=== PATIENT | male | born 1985 | race Caucasian/White ===

== ENCOUNTER 2020-12-01 17:24 | Emergency (ER) | payer OTHER, SELFPAY ==
[2020-12-01 17:30] VITALS: BP 135/84; PULSE 104; RESP 16; TEMP 36.9; O2SAT 96; BMI 52.2
[2020-12-01] MEDS: Nicotine 21 MG PATCH.TD24 TRANSDERMA (18:13)
--- NOTE | 2020-12-01 18:43 | ED_ITS ---
HPI - Psych General Chief Complaint: Psychiatric Symptoms Stated Complaint: crisis Time Seen by Provider: 12/01/20 17:58 Source: patient Mode of arrival: ambulatory Limitations: no limitations History of Present Illness HPI Narrative: 35-year-old male with a past medical history of ADHD, anxiety, asthma, bipolar disease, chronic back pain here with complaints of frequent anger outburst. Unable to control his emotion. Patient tells me frequently he has pulled over to the side of the road by a bridge and thought about driving his car into the water below. He does admit to suicidal thoughts. No homicidal thoughts. No hallucinations. No physical complaints. Denies substance use. He tells me he is seen by psychiatrist, psychologist in a therapist and is taking multiple medications but does not feel like they are working Related Data Home Medications Medication Instructions Recorded Confirmed buspirone 15 mg tablet 15 mg PO BID 11/14/20 dextroamphetamine-amphetamine ER 1 cap PO QAM 11/14/20 25 mg 24hr capsule,extend release olanzapine 10 mg tablet 10 mg PO BID 11/14/20 Previous Rx's Medication Instructions Recorded cholecalciferol (vitamin D3) 50 50 mcg PO DAILY #90 tab 07/11/20 mcg (2,000 unit) tablet gabapentin 100 mg capsule 100 mg PO TID 30 Days #90 cap 10/19/20 albuterol sulfate 90 mcg/actuation 2 puff INHALATION Q6H PRN 30 Days 11/11/20 aerosol inhaler #8.5 g cyclobenzaprine 10 mg tablet 10 mg PO TID PRN #30 tab 11/14/20 meloxicam 15 mg tablet 15 mg PO DAILY #30 tab 11/14/20 Allergies Allergy/AdvReac Type Severity Reaction Status Date / Time SEAFOOD Allergy Severe HIVES Uncoded 03/13/20 16:35 shellfish Allergy Unknown anaphylaxis Uncoded 09/20/18 00:00 Review of Systems 2 Review of Systems: Yes all other systems are reviewed and are negative Constitutional: Constitutional: Reports no additional constitutional complaints, Denies body ache(s), Denies chills, Denies fever(s), Denies headache(s) and Denies weakness Eyes: Eyes: Reports no additional eye complaints and Denies change in vision ENT: Reports system reviewed and no additional complaints, except as doc umented, Denies dizziness, Denies headache(s), Denies nasal congestion, Denies nasal discharge and Denies neck pain Cardiovascular: Cardiovascular: Reports no additional cardiovascular complaints, Denies chest pain, Denies leg edema and Denies dyspnea Respiratory: Respiratory: Reports no additional respiratory complaints, Denies cough and Denies dyspnea Gastrointestinal: Gastrointestinal: Reports no additional gastrointestinal complaints, Denies abdominal pain, Denies diarrhea, Denies nausea and Denies vomiting Genitourinary: Genitourinary: Denies urinary incontinence Musculoskeletal: Musculoskeletal: Reports no additional musculoskeletal complaints, Denies back pain, Denies arthralgias, Denies joint swelling, Denies neck pain, Denies numbness and Denies tingling Integumentary/Breasts: Skin/Breast: Reports system reviewed and no additional complaints, except as docu and Denies rash Neurologic: Reports system reviewed and no additional complaints, except as documented, Denies Abnormal speech present, Denies dizziness, Denies headache(s), Denies numbness, Denies tingling and Denies weakness Psychiatric: Psychiatric: Reports irritability, Reports mood swings, Denies visual hallucinations, Denies hallucinations, Denies homicidal ideation and Reports suicidal ideation [facility] Past Medical History Attestation statement: The following information was validated with the patient. Source: old records reviewed and nursing notes reviewed Medical History ADHD (attention deficit hyperactivity disorder) Anxiety Asthma Bipolar disorder Lumbar disc herniation Nerve root compression Sleep apnea Stuttering Family History Family History Father No problems noted. Mother No problems noted. Sister No problems noted. Sister No problems noted. Daughter No problems noted. Social History Social History Alcohol intake: former Patient Tobacco Use Status: Current everyday Tobacco user Smoked in Last 30 Days: Yes Use of substances other than those prescribed or required for medical reasons: Yes Substance Use Type: Marijuana Substance Use Frequency: Occasionally Advance Directives: No Advance Directives Information Provided: No Physical Exam Vital Signs: Vital Signs: Last Vital Signs Temp 98.5 F 12/01/20 17:30 Pulse 104 H 12/01/20 17:30 Resp 16 12/01/20 17:30 BP 135/84 12/01/20 17:30 Pulse Ox 96 12/01/20 17:30 Body Mass Index 52.2 Const: General: cooperative, healthy appearing, comfortable and no acute distress Orientation/consciousness: patient oriented x3 Limitations: no limitations HENMT: Head: Yes normal to inspection Ears: hearing grossly normal bilaterally General nose exam: Normal external nose present Face and sinus: Yes normal facial exam Mouth: Normal oral and palatal mucosa present Throat: Yes posterior oropharynx normal Eyes: General: appearance normal, both eyes and all related structures Pupils: Equal, round and reactive pupils present Neck: Neck: Yes normal visual inspection Chest: Chest palpation & inspection: normal inspection of the chest Resp: Effort & Inspection: normal respiratory effort Auscultation: clear to auscultation bilaterally Cardio: Rate: regular rate Rhythm: regular rhythm Peripheral pulses: Peripheral pulses 2+ throughout GI: Inspection: Yes normal to inspection Palpation (GI): Soft to palpation and nontender Auscultation: normal bowel sounds Back/Spine/Pelvis: Thoracic/Lumbar Spine: thoracic and lumbar spine normal to inspection Skin: General skin exam: no rashes or lesions noted Neuro: General: patient oriented x3, no focal motor deficits and normal sensation to monofilament Cranial nerves: Yes Equal, round and reactive pupils present Cognition (Neuro): normal cognition Speech: No Abnormal speech present Gait exam (Neuro): Normal gait present Motor exam (neuro): 5/5 motor strength present throughout Extrem: General: Yes normal to inspection, Yes no pedal edema and Yes no calf tenderness Course Course Course Narrative: 35-year-old male here with complaints of mood swings, outbursts, suicidal thoughts. He tells me he has been med compliant and seen by his providers with continued symptoms. No physical complaints. No concern for acute ingestion or trauma. Will check labs, drug screen and have N evaluate the patient. 2044-patient cleared for crisis evaluation. Placement physician observation pending evaluation and disposition 2099-Sign out to night team pending above. MDM - Psych Medical Records Attestation: I reviewed the patient's medical records. Lab Data Attestation: I reviewed the patient's lab results. Result diagrams: 12/01/20 18:48 12/01/20 18:48 Labs: Lab Results 12/01/20 12/01/20 12/01/20 Range/Units 18:48 18:48 18:48 Sodium 141 (135-145) mmol/L Potassium 3.7 (3.3-5.1) mmol/L Chloride 105 (96-108) mmol/L Carbon Dioxide 27 (22-29) mmol/L Anion Gap 13 (12-20) BUN 17 H (9-16) mg/dL Creatinine 1.19 (0.5-1.4) mg/dL Estim Creat Clear Calc 137.4 Estimated GFR > 60 Random Glucose 179 H (60-115) mg/dL Calcium 9.5 (8.4-10.2) mg/dL Total Bilirubin 0.5 (0.0-1.0) mg/dL Direct Bilirubin 0.2 (0.0-0.5) mg/dL AST 15 (5-37) U/L ALT 9 (0-40) U/L Alkaline Phosphatase 90 (39-117) U/L Total Protein 7.1 (6.5-8.0) g/dL Albumin 4.0 (3.5-5.0) g/dL Salicylates < 5.0 L (15-30) mg/dL Urine Opiates Screen Not Detected (Not Detect) Acetaminophen < 1 (<30) mcg/mL Ur Barbiturates Screen Not Detected (Not Detect) Ur Phencyclidine Scrn Not Detected (Not Detect) Ur Amphetamines Screen POSITIVE H (Not Detect) U Benzodiazepines Scrn Not Detected (Not Detect) Urine Cocaine Screen POSITIVE H (Not Detect) U Marijuana (THC) Screen POSITIVE H (Not Detect) Ethyl Alcohol < 10 mg/dL Discharge Plan Discharge Clinical Impression: Depression Prescriptions: No Action cholecalciferol (vitamin D3) 50 mcg (2,000 unit) tablet 50 mcg PO DAILY Qty: 90 RF: 1 gabapentin 100 mg capsule 100 mg PO TID 30 Days Qty: 90 RF: 4 albuterol sulfate [ProAir HFA] 90 mcg/actuation HFA aerosol inhaler 2 puff inhalation Q6H PRN (Reason: bronchospasm) 30 Days Qty: 8.5 RF: 2 dextroamphetamine-amphetamine 25 mg capsule,extended release 24hr 1 cap PO QAM RF: 0 olanzapine 10 mg tablet 10 mg PO BID RF: 0 buspirone 15 mg tablet 15 mg PO BID RF: 0 meloxicam [Mobic] 15 mg tablet 15 mg PO DAILY Qty: 30 RF: 0 cyclobenzaprine 10 mg tablet 10 mg PO TID PRN (Reason: muscle spasm) Qty: 30 RF: 0
[2020-12-01 19:16] LABS: Ethanol < 10 mg/dL
[2020-12-01 19:20] LABS: Acetaminophen LAB < 1 mcg/mL (<30); Alanine Aminotransferase 9 U/L (0-40); Alkaline Phosphatase 90 U/L (39-117); Anion Gap 13 (12-20); Aspartate Amino Transferase 15 U/L (5-37); Bilirubin Direct 0.2 mg/dL (0.0-0.5); Bilirubin Total 0.5 mg/dL (0.0-1.0); Blood Urea Nitrogen 17 mg/dL (9-16); Calcium 9.5 mg/dL (8.4-10.2); Carbon Dioxide 27 mmol/L (22-29); Chloride 105 mmol/L (96-108); Creatinine Clr Calc Pharmacy 137.4; Estimated Glomerular Filt Rate > 60; Glucose Random 179 mg/dL (60-115); Potassium 3.7 mmol/L (3.3-5.1); Salicylate < 5.0 mg/dL (15-30); Sodium 141 mmol/L (135-145); Total Protein 7.1 g/dL (6.5-8.0)
[2020-12-01 19:29] LABS: Amphetamine Screen Urine POSITIVE (Not Detect); Barbiturates, Urine Not Detected (Not Detect); Benzodiazepines Screen Urine Not Detected (Not Detect); Cannabinoid Screen Urine POSITIVE (Not Detect); Cocaine Screen Urine POSITIVE (Not Detect); Opiate Screen Urine Not Detected (Not Detect); Phencyclidine Screen Urine Not Detected (Not Detect)
[2020-12-01 22:31] VITALS: RESP 18
[2020-12-01 23:51] VITALS: BP 147/84; PULSE 79; RESP 16; TEMP 36.6; O2SAT 96
[2020-12-02 07:29] VITALS: RESP 16
--- NOTE | 2020-12-02 07:39 | PC.NURSE ---
pt's sister sam called [facility] [place], pt spoke with her.
--- NOTE | 2020-12-02 07:48 | PC.NURSE ---
PT ate 75% of breakfast
--- NOTE | 2020-12-02 07:50 | PC.NURSE ---
PT PACING IN HALLWAYS/ROOM STATE THAT HE IS ANXIOUS AND HE DID NOT RECEIVE HIS MEDS LAST NIGHT NOR THIS AM YET. PT STATES THAT HE HAS HIS MEDS IN HIS CAR. PT IS ALSO REQUESTING ANOTHER NICOTINE PATCH. AWARE.
[2020-12-02] MEDS: LORazepam 1 MG TABLET 2 MG PO (08:20)
[2020-12-02] MEDS: Nicotine 21 MG PATCH.TD24 TRANSDERMA (08:20)
[2020-12-02 08:38] VITALS: BP 142/83; PULSE 71; RESP 15; TEMP 36.1; O2SAT 95
[2020-12-02 10:52] VITALS: BP 134/84; PULSE 69; RESP 17; TEMP 36.3; O2SAT 95
[2020-12-02] MEDS: busPIRone HCl 5 MG TABLET 15 MG PO (11:00)
[2020-12-02] MEDS: FLUoxetine HCl 20 MG CAPSULE PO (11:00)
[2020-12-02] MEDS: Gabapentin 100 MG CAPSULE PO ×2 (11:00→14:48)
[2020-12-02] MEDS: NaPROXEN 500 MG TABLET PO (11:00)
[2020-12-02] MEDS: Albuterol Sulfate 90 MCG 8 GM INHALER 2 PUFF INHALE (11:02)
[2020-12-02] MEDS: Cholecalciferol (Vitamin D3) 25 MCG TABLET 50 MCG PO (11:03)
--- NOTE | 2020-12-02 11:03 | PC.NURSE ---
pt a/o x 3 no sob/apryl noted skin pink warm dry speaks in full sentences. pt is in common area watching tv. pt denies any si at this time, states that it come and goes. pt' lungs - cta. pt rquested/given ventolin puffe, 1 puff administered. pt aware of plan of care. bhn to eval. pt states ativan 2mg po was effective. decreased anxiety noted.
[2020-12-02 12:51] VITALS: RESP 16
--- NOTE | 2020-12-02 14:06 | PC.NURSE ---
pt seen by alfie), pt aware of plan of care.
[2020-12-02 14:38] VITALS: BP 134/81; PULSE 56; TEMP 36.3; O2SAT 98
--- NOTE | 2020-12-02 15:55 | PC.NURSE ---
pt is calm and cooperative, making needs known,
[2020-12-02 16:11] LABS: MANUAL DIFF FLAG NO
[2020-12-02 16:13] LABS: COVID-19 Test Negative (Negative); IDNOW Serial# 9DD0AD1C
[2020-12-02 16:14] LABS: Basophils Percent Auto 0.3 % (0-2); Eosinophils Absolute Auto 0.2 X10*3/uL (0.0-0.4); Eosinophils Percent Auto 1.5 % (0-4); Hematocrit 44.5 % (42-52); Hemoglobin 14.6 g/dl (14.0-18.0); Imm Gran Abs Auto 0.02 X10*3/uL (0.00-0.03); Imm Gran Pct Auto 0.2 % (0.0-0.4); Lymphocytes Percent Auto 17.7 % (20-40); Mean Corpuscular HGB Conc 32.8 g/dl (31.0-36.0); Mean Corpuscular Hemoglobin 29.6 pg (27.0-33.0); Mean Corpuscular Volume 90.3 fL (80-98); Mean Platelet Volume 10.1 fL (9.4-12.4); Monocytes Absolute Auto 0.8 X10*3/uL (0.1-1.2); Monocytes Percent Auto 7.2 % (2-11); Neutrophils Absolute Auto 8.1 X10*3/uL (2.0-8.3); Neutrophils Percent Auto 73.1 % (45-73); Platelet Count 225 X10*3/uL (160-400); Red Blood Count 4.93 X10*6/uL (4.60-5.80); White Blood Count 11.1 X10*3/uL (4.8-10.8)
--- NOTE | 2020-12-02 18:31 | PC.NURSE ---
Linda from [facility] reports that pt is accepted to respite on [address] in [place], pt is voluntary denies si/hi, plan is for patient to self drive to facility. Pt consents to safety and reports readiness to do so. contact for pt is [phone]. pt given rx scripts and directions to facility.
== END 2020-12-02 18:40 ==
PROVIDERS: Nurse Practitioner Family; Emergency Provider Internal Medicine; PCP Nurse Practitioner Family
DX: F32.9 Major depressive disorder, single episode, unspecified (principal); F31.9 Bipolar disorder, unspecified; J45.909 Unspecified asthma, uncomplicated; Z79.899 Other long term (current) drug therapy; Z20.822 Contact with and (suspected) exposure to COVID-19
CPT/HCPCS: 36415; 80048; 80076; 80143; 80179; 80307; 82077; 85025; 87635; 99285

== ENCOUNTER 2021-06-11 14:08 | Emergency (ER) | payer OTHER, SELFPAY ==
--- NOTE | ~2021-06-11 | XR_ITS ---
EXAMINATION: XR HAND, RIGHT CLINICAL INFORMATION: Punched wall. COMPARISON: None TECHNIQUE: PA, lateral, and oblique views of the right hand. FINDINGS: Mild deformity distal fifth metacarpal likely old injury. No acute fracture, dislocation or subluxation seen. The soft tissues are normal. XR/XR hand RT min 3V IMPRESSION: Unremarkable right hand exam.
--- NOTE | 2021-06-11 14:19 | ED.UPPEXIN ---
HPI - Extremity Injury (Upper) General Chief Complaint: Extremity Injury, Upper Stated Complaint: ? KNUCKLE FX PER INPT FACILITY Time Seen by Provider: 06/11/21 14:17 Source: patient Mode of arrival: EMS Limitations: no limitations History of Present Illness HPI narrative: patient notes that he punched a candle 2 weeks ago and caused a cut on his 4th knuckle R hand that he didn't seek care for since then his finger has been hanging down and he was not able to raise it he noted increased pain after punching the wall yesterday and his cut opened back up. complaint: injury to: right and hand Onset (ago): day(s) (yesterday ) Other Extremity Injury: right: hand Other injuries: none Handedness: right Place: other ([facility]) Severity: mild Relieving factors: none Exacerbating factors: other (movement of hand particularly 4th finger) Context: direct blow (punched a wall yesterday - notes he did the same thing a couple of weeks ago and had a cut there but never sought care) Associated symptoms: denies other symptoms Treatments prior to arrival: bandage Related Data Previous Rx's Medication Instructions Recorded meloxicam 15 mg tablet (Mobic) 15 mg PO DAILY #30 tab 11/14/20 buspirone 15 mg tablet 15 mg PO BID #14 tab 12/02/20 dextroamphetamine-amphetamine ER 25 mg PO DAILY #7 cap 12/02/20 25 mg 24hr capsule,extend release fluoxetine 20 mg capsule 20 mg PO DAILY #7 cap 12/02/20 gabapentin 100 mg capsule 100 mg PO TID #21 cap 12/02/20 lorazepam 1 mg tablet (Ativan) 1 mg PO BID PRN #10 tab 12/02/20 cholecalciferol (vitamin D3) 50 50 mcg PO DAILY #30 tab 01/11/21 mcg (2,000 unit) tablet albuterol sulfate 90 mcg/actuation 2 puff INHALATION Q6H PRN 30 Days 05/10/21 aerosol inhaler (ProAir HFA) #8.5 g Allergies Allergy/AdvReac Type Severity Reaction Status Date / Time SEAFOOD Allergy Severe HIVES Uncoded 05/01/21 15:01 shellfish Allergy Unknown anaphylaxis Uncoded 05/01/21 15:01 Review of Systems Review of Systems: Constitutional : No Fever, No Chills ENT/Mouth : No Ear Pain, No Hoarseness, No sore throat Eyes: No Eye Pain, No Swelling, No Redness, No Foreign Body Cardiovascular : No Chest Pain, No SOB Respiratory : No Cough, No Dyspnea Gastrointestinal : No Nausea, No Vomiting, No Diarrhea, No abdominal Pain Genitourinary : No Dysuria, No Hematuria Musculoskeletal : positive joint pain, No Myalgias, pos Joint Swelling Skin : pos Skin lacerations, No rash Neuro : No Weakness, No Numbness, No Loss of Consciousness, No Dizziness, No Headache Psych : No Anxiety/Panic, pos Depression Heme/Lymph: no easy bruising, no Lymphadenopathy Endocrine : No Polyuria, No Polydipsia PMFSH Past Medical History Attestation statement: The following information was validated with the patient. Medical History ADHD (attention deficit hyperactivity disorder) Anxiety Asthma Bipolar disorder Lumbar disc herniation Nerve root compression Schizophrenia Sleep apnea Stuttering Suicidal ideation Family History Family History Father No problems noted. Mother No problems noted. Sister No problems noted. Sister No problems noted. Daughter No problems noted. Social History Social History Alcohol intake: former Patient Tobacco Use Status: Current everyday Tobacco user Substance Use Type: Marijuana Advance Directives: No Advance Directives Information Provided: No Physical Exam Vital Signs: Vital Signs: Last Vital Signs Pulse 81 06/11/21 14:31 Resp 20 06/11/21 14:31 BP 123/64 06/11/21 14:31 Pulse Ox 96 06/11/21 14:31 BMI result Body Mass Index 50.1 Appearance: Alert. Oriented X3. No acute distress. Eyes: Pupils equal, round and reactive to light. ENT: Pharynx normal. Neck: Normal inspection. Neck supple. CVS: Normal heart rate and rhythm. Pulses normal. Respiratory: No respiratory distress. Breath sounds normal. Abdomen: Soft and nontender. Skin: Skin warm and dry. Normal skin color. Normal skin turgor. Extremities: No lower extremity edema. R hand ttp along 4th MCP joint abrasion and small minute puncture wound over 4th MCP, bruising over 5th digit distally NV intact - does not have good ROM of 4th digit limited movement noted cannot extend the finger old wound noted over 4th knuckle with area that appears opened in the middle Neuro: Oriented X 3. No motor deficit. No sensory deficit. Course Course Course Narrative: patient very consistent states he had a laceration from candle jar pulled glass out of his knuckle area 2 weeks ago since then has not been able to raise his 4th finger, [facility] staff was aware but no issues were addressed until he punched a wall yesterday. His wound on the knuckle appears old and area appears dehisced itself this does not appear entirely new. Suspect old extensor tendon injury, wound dressed and cleaned, prophylactic cephalexin, volar and finger splint, referral to hand surgery MDM - Extremity Injury (Upper) MDM Narrative Medical decision making narrative: 35 yo male at [facility] for mental health issues punched a wall yesterday that appears to have re-opened a wound and he likely had an extensor tendon injury from a candle jar laceration that he reports was 2 weeks ago - dispo per results and findings. he states tetanus up to date, will need splint and orthopedics referral, prophylactic abx and wound care Procedures Orthopedic Splinting/Casting Injury #1: Side: right Upper Extremity Injury Location: hand and finger Upper Extremity Immobilizer: volar splint and aluminum form splint Discharge Plan Discharge Clinical Impression: Puncture wound, Injury of extensor tendon of right hand Patient Disposition: Home, Self-Care Instructions: Puncture Wound (ED), Tendon Laceration (ED) Additional Instructions: return to ED for any worsening symptoms or concerns clean sterile dressing splint remains on until cleared Giacomo is very adamant that he suffered a deep puncture wound 2 weeks ago from glass candle jar that resulted in loss of function of his 4th finger - this is likely an old extensor tendon laceration. His wound appears old and newly opened after punching the wall. He should remain in the splint until he sees orthopedics there is no new fracture noted on xray. Please keep him on cephalexin 500mg QID for 7 days. He was given a tetanus shot. Call Dr. Ramey for next available appointment Mild deformity distal fifth metacarpal likely old injury. No acute fracture, dislocation or subluxation seen. The soft tissues are normal. ? XR/XR hand RT min 3V IMPRESSION: Unremarkable right hand exam. Prescriptions: No Action cholecalciferol (vitamin D3) 50 mcg (2,000 unit) tablet 50 mcg PO DAILY Qty: 30 RF: 5 albuterol sulfate [ProAir HFA] 90 mcg/actuation HFA aerosol inhaler 2 puff inhalation Q6H PRN (Reason: bronchospasm) 30 Days Qty: 8.5 RF: 2 fluoxetine 20 mg capsule 20 mg PO DAILY Qty: 7 RF: 0 dextroamphetamine-amphetamine 25 mg capsule,extended release 24hr 25 mg PO DAILY Qty: 7 RF: 0 lorazepam [Ativan] 1 mg tablet 1 mg PO BID PRN (Reason: anxiety) Qty: 10 RF: 0 buspirone 15 mg tablet 15 mg PO BID Qty: 14 RF: 0 gabapentin 100 mg capsule 100 mg PO TID Qty: 21 RF: 0 meloxicam [Mobic] 15 mg tablet 15 mg PO DAILY Qty: 30 RF: 0 Referrals: Evelyn Ramey MD [Physician] - 5 days
[2021-06-11 14:31] VITALS: BP 123/64; PULSE 81; RESP 20; O2SAT 96; BMI 50.1
--- NOTE | 2021-06-11 14:49 | PC.NURSE ---
pt brought to ed via ems from a locked unit at [facility] in [place]. pt states he got upset and punched the wall with his right fist. pt reports he was upset because he woke up with the power to heal people but nobody was able to explain to him why he woke up like that. he also reports that he will continue to heal. pt's right fist red and swollen, small cut noted.
[2021-06-11] MEDS: cephALEXin 500 MG CAPSULE PO (15:20)
[2021-06-11] MEDS: Diphth,Pertus(ACell),Tet Adult 0.5 ML SYRINGE IM (15:20)
== END 2021-06-11 19:09 | disposition home or self-care (01) ==
PROVIDERS: Emergency Provider Emergency Medicine; PCP Nurse Practitioner Family
DX: S61.431A Puncture wound without foreign body of right hand, initial encounter (principal); S66.801A Unspecified injury of other specified muscles, fascia and tendons at wrist and hand level, right hand, initial encounter; W22.09XA Striking against other stationary object, initial encounter; Y93.9 Activity, unspecified; Y92.9 Unspecified place or not applicable; Y99.9 Unspecified external cause status
CPT/HCPCS: 29125; 29130; 73130; 90471; 90715; 99284

== ENCOUNTER 2023-04-01 09:48 | Outpatient (REF) | payer OTHER, SELFPAY | END 2023-04-01 09:49 | disposition home or self-care (01) | LOC: HO.HMGCLDS 09:48 | PROVIDERS: PCP Nurse Practitioner Family; Visit Provider Nurse Practitioner Family | DX: E66.01 Morbid (severe) obesity due to excess calories (principal); M51.26 Other intervertebral disc displacement, lumbar region; F31.9 Bipolar disorder, unspecified; Z79.899 Other long term (current) drug therapy | CPT/HCPCS: 36415; 80164 ==

== ENCOUNTER 2023-09-24 10:55 | Outpatient (AMB) | payer OTHER, SELFPAY ==
--- NOTE | 2023-09-24 12:42 | MHC.OFFWIV ---
Intake Vital Signs 09/24/23 13:12 Height 6 ft BP 138/92 H Blood Pressure Location Lt brachial Pulse 85 Pulse Source Pulse Oximeter Temp 97.8 F Temp Source Oral Pulse Oximetry (%) 96 Oxygen Delivery Method Room Air Intake Visit Reasons: EP: losing consciousness ([phone]) Intake Note: pt says over the last year he has lost consciousness 4 times every time he either coughs or yawns 3 times he fell and hit his head this last time was few days to a week ago he was sitting down at the time of the incident. pt says he had a hx of sz 2 years ago in half-way Patient Tobacco Use Status: Current everyday Tobacco user Allergies SEAFOOD Allergy (Severe, Uncoded 10/13/23 07:38) HIVES shellfish Allergy (Unknown, Uncoded 10/13/23 07:38) anaphylaxis HPI EP: losing consciousness ([phone]) HPI Details Patient is a 38-year-old male with morbid obesity, untreated obstructive sleep apnea, poor compliance with asthma medication, and heavy tobacco smoker as well as marijuana, and with bipolar disorder history, who comes to the walk-in clinic with his friend reporting that had a recent episode of severe cough which caused him to lose consciousness and fall over. 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 He reports having a transient history of seizures while he was being transitioned on new medication for bipolar years ago. He has since been taken off this medication, and does not take anti seizure meds and has not had a seizure since. He reports that he was not able to follow up with his most recent sleep medicine appointment, and is not ready to quit smoking, other tobacco or marijuana. He smokes half a pack of cigarettes a day as well as multiple cigars, and frequent marijuana use. He denies current altered mental status, weakness or dizziness, numbness or tingling, cough or respiratory distress, palpitations or chest pain or shortness of breath. He reports no incontinence of urine or feces after these episodes, and per friend he is transiently dazed but no known postictal periods. [facility] Medical History (Updated 10/13/23 @ 07:15 by David Velazquez [employer]POR[employer]INE[employer]) Suicidal ideation Schizophrenia Nerve root compression Sleep apnea Lumbar disc herniation Stuttering Anxiety Asthma ADHD (attention deficit hyperactivity disorder) Bipolar disorder Family History Father No problems noted. Mother No problems noted. Sister No problems noted. Sister No problems noted. Daughter No problems noted. Social History Housing: Assisted Living Facility Alcohol intake: former Patient Tobacco Use Status: Current everyday Tobacco user Tobacco use type: Cigar Cigarette Packs Per Day: 0.5 Cigarettes Per Day: 10 e-Cigarette/Vaping Use: Currently Using Second Hand Smoke Exposure: Yes Substance Use Type: Marijuana service: No Current occupational status: unemployed Cognitive needs: No Hearing needs: No Vision needs: No Review of Systems Const All systems reviewed & are unremarkable except as noted in HPI and below Neuro Denies confusion Psych Denies confusion Physical Exam Vital Signs: Last Vital Signs Temp 97.8 F 09/24/23 13:12 Pulse 85 09/24/23 13:12 BP 138/92 H 09/24/23 13:12 Pulse Ox 96 09/24/23 13:12 Oxygen Delivery Method Room Air 09/24/23 13:12 Const General: cooperative, comfortable, no acute distress, alert, awake, Physically active, poor hygiene and tired appearing; No in distress, anxious, confusion, diaphoretic, ill appearing or intoxicated appearing Nutritional Appearance: obese Orientation/consciousness: patient oriented x3 and No confusion Limitations: ambulation with cane HEENT Head: Yes normal to inspection, Yes normocephalic and Yes atraumatic Ears: hearing grossly normal bilaterally, external ears normal, TM's normal bilaterally and EAC's normal General nose exam: Normal external nose present, Normal nares present, No nasal polyps present, Normal nasal mucous membranes and turbinates present, Normal septum present and No nasal discharge present Face and sinus: Yes normal facial exam, Yes sinuses nontender and Yes face symmetric Mouth: Normal oral and palatal mucosa present, lip normal and tongue normal Throat: Yes posterior oropharynx normal, Yes abnormal tonsil (mildly erythematous bilaterally), No peritonsillar mass, No postnasal drainage, No uvular edema and No cobblestoning Eyes General: appearance normal, both eyes and all related structures Pupils: Equal, round and reactive pupils present Chest Chest palpation & inspection: normal palpation of entire chest wall Resp Effort & Inspection: normal respiratory effort, able to speak in complete sentences, no audible wheezes, no cough, no grunting, not labored, no nasal flaring, no retractions and symmetric chest movement Auscultation: clear to auscultation bilaterally, no crackles, no rales, no rhonchi, no wheezes, lung sounds not diminished and No rub present Cardio Rate: regular rate Skin Other: Good color, warm and dry Neuro Other: Romberg not tested due to patient's habitus, and difficulty with balance already. General: patient oriented x3 and No confusion Cranial nerves: Yes CN's II-XII intact bilaterally and Yes Equal, round and reactive pupils present Cognition (Neuro): normal cognition Gait exam (Neuro): Wide-based gait present Psych Appearance: grossly normal Mental Status: mental status grossly normal Speech and movement: Normal speech and movement present Affect: normal affect Attitude: cooperative Thought process: Normal thought process present Insight: Good insight present (Psych) Judgement: Good judgement present (Psych) Results Reviewed Results Reviewed: Plain film chest x-rays today unremarkable for acute cardiopulmonary issues. Assessment & Plan Assessment & Plan (1) Cough: Code(s): R05.9 - Cough, unspecified Qualifiers: Cough type: chronic Qualified Code(s): R05.3 - Chronic cough Plan: 38-year-old male with morbid obesity, untreated sleep apnea, poor compliance with asthma medication, and heavy tobacco smoker as well as marijuana, and with bipolar disorder history, who comes to the walk-in clinic with his friend reporting that had a recent episode of severe cough which caused him to lose consciousness and fall over, which is apparently the 4th episode within the past year. He is slightly confused after these episodes, although no drowsy and obvious postictal periods. He does have a brief history of having seizures with medication change to treat his bipolar disorder a few years ago. Since then, no apparent seizure activity. It sounds like he is having syncopal episodes related coughing. He self reports that he is a heavy marijuana and cigarette/cigar smoker, and this is likely aggravating his asthma, which is also not being treated appropriately. He also has the untreated obstructive sleep apnea, which might be contributing to fatigue in addition to the morbid obesity. His exam here in the walk-in is negative for a neuro deficit, and he is alert and oriented with no current symptoms, and no cough or respiratory distress. I did do a chest x-ray today which shows no acute cardiopulmonary issues. I think he needs follow-up with a foreign diplomat to have repeat PFTs and to have a more aggressive maintenance regimen for his asthma, including smoking counseling, as well as DIANA treatment. He is also morbidly obese and needs to work on weight reduction. We discussed that he should have a stat follow-up with his PCP to start working on these issues. He is in agreement with this, and an appointment was made for him in a few days with David Pena. He knows to go to the emergency department in the meantime if he has another episode, especially if he gets hurt. Patient's friend was with him and witnessed agreement with this plan. Orders: Orders XR chest 2V 09/24/23 R05.9 - Cough, unspecified Coding Level of Care Code Est Pt Level 4 (13924) Diagnoses Chronic cough R05.3 Cough type: chronic
[2023-09-24 13:12] VITALS: BP 138/92; PULSE 85; TEMP 36.6; O2SAT 96
== END 2023-09-24 13:51 | disposition home or self-care (01) ==
PROVIDERS: PCP Nurse Practitioner Family; Visit Provider Physician Assistant Medical
DX: R05.3 Chronic cough (principal)
CPT/HCPCS: 99051; 99214

== ENCOUNTER 2023-09-24 13:29 | Outpatient (REF) | payer OTHER, SELFPAY ==
--- NOTE | ~2023-09-24 | XR_ITS ---
EXAMINATION: XR chest 2V CLINICAL INFORMATION: Cough COMPARISON: No prior chest x-ray available in our system for comparison at the time of this dictation. TECHNIQUE: XR chest 2V, 2 Views Lungs and [place]: Both lungs are clear. Pleura: Normal. Costophrenic angles are sharp. No pneumothorax. Heart: The heart is normal in size. Mediastinum: The mediastinum is within normal limits.. Bones: Skeletal structures included are normal for patient's age. XR/XR chest 2V IMPRESSION: No radiographic evidence of acute cardiopulmonary disease.
== END 2023-09-24 13:30 | disposition home or self-care (01) ==
LOC: HO.HMGCX 13:29
PROVIDERS: PCP Nurse Practitioner Family; Visit Provider Physician Assistant Medical
DX: R05.9 Cough, unspecified (principal)
CPT/HCPCS: 71046

== ENCOUNTER 2023-10-13 07:19 | Outpatient (AMB) | payer OTHER, SELFPAY ==
--- NOTE | 2023-10-13 07:12 | MHC.PC.OV ---
Intake Visit Reasons: follow up Allergies SEAFOOD Allergy (Severe, Uncoded 10/13/23 07:38) HIVES shellfish Allergy (Unknown, Uncoded 10/13/23 07:38) anaphylaxis Medication List - Last Reconciled 10/13/23 by CRISTI Mina acetaminophen 500 mg PO Q6H PRN 30 days albuterol sulfate 90 mcg/actuation (ProAir HFA) 2 puffs inhalation Q6H PRN 30 days albuterol sulfate 90 mcg/actuation 2 puffs inhalation Q6H PRN aripiprazole 10 mg PO DAILY cane As directed cholecalciferol (vitamin D3) 50 mcg PO DAILY clonidine HCl 0.1 mg PO BID cyclobenzaprine 10 mg PO BID PRN 14 days duloxetine 60 mg PO DAILY gabapentin 100 mg PO BID 30 days lamotrigine 100 mg PO DAILY Tobacco use date assessed: 12/02/22 HPI follow up HPI Details Pt reports intermittent episodes of mental confusion. He reports that when coughing or yawning he forgets where he is, who he is with, and what time period it is. Pt reports that these episodes last from 20-40 seconds and can occur multiple times a day. Will order head CT. Pt has a significant psych hx including bipolar disorder and schizophrenia. He is on multiple psych medications. Denies fever, chills, and dizziness. [facility] Medical History (Updated 10/13/23 @ 07:15 by CRISTI Mina) Suicidal ideation Schizophrenia Nerve root compression Sleep apnea Lumbar disc herniation Stuttering Anxiety Asthma ADHD (attention deficit hyperactivity disorder) Bipolar disorder Family History Father No problems noted. Mother No problems noted. Sister No problems noted. Sister No problems noted. Daughter No problems noted. Social History Housing: Assisted Living Facility Alcohol intake: former Patient Tobacco Use Status: Current everyday Tobacco user Tobacco use type: Cigar Cigarette Packs Per Day: 0.5 Cigarettes Per Day: 10 e-Cigarette/Vaping Use: Currently Using Second Hand Smoke Exposure: Yes Substance Use Type: Marijuana service: No Current occupational status: unemployed Cognitive needs: No Hearing needs: No Vision needs: No Questionnaire Thrive Questionnaire Date Thrive assessed: 12/02/22 AYDEE-7 AMB Questionnaire AYDEE-7 Date AYDEE - 7 assessed: 12/02/22 Source: Developed by Drs. Romeo Meyer, Cindy Edwards, Jose Mittal and colleagues, with an educational chris from [employer]. Review of Systems Const Reports as per HPI Physical exam (Primary Care) Tobacco/Smoking Status: Tobacco use Status Tobacco use date assessed 12/02/22 10/13/23 07:13 Patient Tobacco Use Status Current everyday Tobacco 10/13/23 07:13 Tobacco use type Cigar 10/13/23 07:13 e-Cigarette/Vaping Use Currently Using 10/13/23 07:13 Thrive Assessment: Date of Thrive Assessment Date Thrive assessed 12/02/22 10/13/23 07:13 Const General: cooperative Orientation/consciousness: patient oriented x3 Neuro General: patient oriented x3 Psych Appearance: grossly normal Mental Status: mental status grossly normal Speech and movement: Clear speech present Affect: normal affect Attitude: cooperative Thought process: Normal thought process present Thought content: Normal thought content present Insight: Good insight present (Psych) Judgement: Good judgement present (Psych) Telehealth Telehealth Location of provider rendering services: practice address Location of patient: address on file Patient Identification confirmed using: Name, : Yes Telehealth method: video Patient verbally consented to treatment: Yes Patient verbally consented to billing insurance company: Yes Patient informed of any privacy concerns related to visit: Yes Minutes spent on Phone/Video with Pt.: 10 Assessment and Plan Assessment & Plan (1) Mental confusion: Code(s): R41.0 - Disorientation, unspecified Plan: CT ordered Plan The patient agreed to the use of a medical receptionist medical assistant for this encounter. Scribed for CRISTI Goode by Paty Hartley medical receptionist medical assistant, on 10/13/2023 at 07:10 EST. Orders: Orders Comprehensive [place]. Panel Fast Today R41.0 - Disorientation, unspecified TSH reflex Free T4 Today R41.0 - Disorientation, unspecified UA CC w/rflx Micro + Cult Today R41.0 - Disorientation, unspecified Lipid Panel Today R41.0 - Disorientation, unspecified Vitamin B12 and Folate Today R41.0 - Disorientation, unspecified Homocysteine Today R41.0 - Disorientation, unspecified Methylmalonic Acid Today R41.0 - Disorientation, unspecified CT head/brain wo IV con Today R41.0 - Disorientation, unspecified Complete Blood Count Auto Diff Today R41.0 - Disorientation, unspecified Coding Level of Care Code Tele Est Pt Level 3 ([id number]) Diagnoses Mental confusion R41.0
== END 2023-10-13 08:50 | disposition home or self-care (01) ==
PROVIDERS: PCP Nurse Practitioner Family; Visit Provider Nurse Practitioner Family
DX: R41.0 Disorientation, unspecified (principal)
CPT/HCPCS: 99213

== ENCOUNTER 2023-11-16 16:30 | Outpatient (REF) | payer OTHER, SELFPAY ==
--- NOTE | ~2023-11-16 | CT_ITS ---
EXAMINATION: CT head/brain wo IV con CLINICAL INFORMATION: Reason for Exam R41.0 - Disorientation, unspecified COMPARISON: None. TECHNIQUE: Contiguous axial imaging was performed from the skull base to vertex without intravenous contrast. Sagittal and coronal reformatted images were obtained. This CT examination was performed using dose optimization techniques as appropriate, variously including the following: * Automated exposure control * Adjustment of mA and/or kV according to patient size (this includes techniques or standardized protocols for targeted exams where dose is matched to indication/reason for exam; i.e. extremities or head) Use of iterative reconstruction technique DLP: 1019.9 mGy-cm FINDINGS: No acute osseous or soft tissue abnormality. Small left maxillary sinus retention cyst. Mild left posterior ethmoid sinus opacification and mild mucosal thickening of the visualized maxillary sinuses. The mastoid air cells are clear. Sigmoid curvature of the nasal septum. There is no evidence of acute intracranial hemorrhage or territorial infarction. No abnormal mass effect or midline shift is seen. Barrett to white matter differentiation is well preserved. No extra-axial fluid collections are identified. No hydrocephalus. No significant volume loss. There is no abnormal attenuation within the brain parenchyma. CT/CT head/brain wo IV con IMPRESSION: Normal exam
== END 2023-11-16 16:31 | disposition home or self-care (01) ==
LOC: HO.CT 16:30
PROVIDERS: PCP Nurse Practitioner Family; Visit Provider Nurse Practitioner Family
DX: R41.0 Disorientation, unspecified (principal)
CPT/HCPCS: 70450

== ENCOUNTER 2024-01-11 10:59 | Outpatient (AMB) | payer OTHER, SELFPAY ==
--- NOTE | 2024-01-11 11:02 | A.OFFPC_ITS ---
Vital Signs 01/11/24 11:04 Height 6 ft Weight 413 lb BMI 56.0 BP 130/90 H Blood Pressure Location Rt brachial Position Sitting Pulse 72 Pulse Source Pulse Oximeter Pulse Oximetry (%) 96 Oxygen Delivery Method Room Air Intake Visit Reasons: Physical Exam Intake Note: Patient here for physical exam. pt would like to discuss episodes when he coughs hard or stretching and are happening frequent through out the day. Allergies SEAFOOD Allergy (Severe, Uncoded 01/11/24 11:06) HIVES shellfish Allergy (Unknown, Uncoded 01/11/24 11:06) anaphylaxis Tobacco use date assessed: 01/11/24 Dental Screening Dental Screen Date: 01/11/24 Was dental information given to patient?: Patient declined HPI Physical Exam HPI Details Pt is here for a PE. Will order labs. FORMERLY [facility], [facility] Medical History (Updated 01/11/24 @ 11:44 by CRISTI Mina) Suicidal ideation Schizophrenia Nerve root compression Sleep apnea Lumbar disc herniation Stuttering Anxiety Asthma ADHD (attention deficit hyperactivity disorder) Bipolar disorder Family History Father No problems noted. Mother No problems noted. Sister No problems noted. Sister No problems noted. Daughter No problems noted. Social History Housing: Assisted Living Facility Alcohol intake: former Patient Tobacco Use Status: Current everyday Tobacco user Tobacco use type: Cigar Cigarette Packs Per Day: 0.5 Cigarettes Per Day: 10 e-Cigarette/Vaping Use: Currently Using Second Hand Smoke Exposure: Yes Substance Use Type: Marijuana service: No Current occupational status: unemployed Cognitive needs: No Hearing needs: No Vision needs: No Questionnaire PHQ-9 Over the last 2 weeks, how often have you been bothered by any of the following problems? 1. Little interest or pleasure in doing things: more than half the days 2. Feeling down, depressed, or hopeless: more than half the days 3. Trouble falling or staying asleep, or sleeping too much: several days 4. Feeling tired or having little energy: more than half the days 5. Poor appetite or overeating: nearly every day 6. Feeling bad about yourself - or that you are a failure or have let yourself or your family down: not at all 7. Trouble concentrating on things, such as reading the newspaper or watching television: more than half the days 8. Moving or speaking so slowly that other people could have noticed. Or the op posite - being so fidgety or restless that you have been moving around a lot more than usual: several days 9. Thoughts that you would be better off or of hurting yourself in some way: not at all Total score: 13 Depression Screening Interpretation: Positive Depression Screening Follow-up: Existing condition and In treatment Depression Screening Done: Yes 13147 - PHQ-9 Billing: Yes Source: Developed by Drs. Romeo Meyer, Cindy Edwards, Jose Mittal and colleagues, with an educational chris from [employer]. Thrive Questionnaire Date Thrive assessed: 01/10/24 I am a: Parent/Caregiver What is your living situation today?: I choose not to answer this question Within the past 12 months, did the food you bought not last and you didn't have the money to get more?: Often true Within the past 12 months, did you worry whether your food would run out before you got money to buy more?: Often true Do you have trouble paying for medicines?: I choose not to answer this question Do you have trouble getting transportation to medical appointments?: Yes Do you have trouble paying your heating and electricity bill?: I choose not to answer this question Do you have trouble taking care of your child, family member or friend?: No Do you have trouble with day-to-day activities such as bathing, preparing meals, shopping, managing finances, etc.?: I choose not to answer this question Are you currently unemployed and looking for a job?: I choose not to answer this question Are you interested in more education?: I choose not to answer this question Please select the resources that you would like help with: Housing/Longterm, Food, Transportation and Daily support Currently or been in a relationship where the following occur: No concerns reported THRIVE Score: 3 AUDIT C Alcohol Use Questionnaire (AUDIT-C) 1. How often do you have a drink containing alcohol?: Never 3. How often do you have six or more drinks on one occasion?: Never Total Score: 0 AYDEE-7 AMB Questionnaire AYDEE-7 Date AYDEE - 7 assessed: 01/11/24 Feeling nervous, anxious, or on edge: 0 = Not at all Not being able to stop or control worryin = Not at all Worrying too much about different things: 2 = More than half the days Trouble relaxin = More than half the days Being so restless that it is hard to sit still: 2 = More than half the days Becoming easily annoyed or irritable: 0 = Not at all Feeling afraid as if something awful might happen: 0 = Not at all Total AYDEE-7 score (0-4 normal; 5-9 mild; 10-14 moderate; 15-21 severe): 6 Source: Developed by Drs. Romeo Meyer, Cindy Edwards, Jose Mittal and colleagues, with an educational chris from [employer]. AYDEE-7 Assessment Billing AYDEE-7 Assessment Tool: AYDEE-7 Assessment 82574 (denies any si or hi) Review of Systems Const Denies chills and Denies fever(s) Eyes Denies blurry vision ENT Denies vertigo, Denies dizziness and Denies sore throat Card Denies chest pain at rest, Denies chest pain with activity, Denies diaphoresis, Denies dyspnea and Denies dyspnea on exertion Resp Denies cough, Denies dyspnea, Denies dyspnea on exertion and Denies wheezing GI Denies abdominal pain, Denies melena, Denies hematochezia, Denies constipation, Denies diarrhea and Denies loose stools Denies hematuria Musc Denies numbness and Denies tingling Skin/Breast Denies lesions Neuro Denies vertigo, Denies dizziness, Denies numbness and Denies tingling Psych Denies anxiety, Denies depression, Denies homicidal ideation, Denies suicidal ideation and Denies other (substance abuse) Aller/Immun Denies wheezing Physical exam (Primary Care) Vital Signs: Last Vital Signs Pulse 72 01/11/24 11:04 BP 130/90 H 01/11/24 11:04 Pulse Ox 96 01/11/24 11:04 Oxygen Delivery Method Room Air 01/11/24 11:04 BMI result Body Mass Index 56.0 Tobacco/Smoking Status: Tobacco use Status Tobacco use date assessed 01/11/24 01/11/24 11:10 Patient Tobacco Use Status Current everyday Tobacco 01/11/24 11:03 Tobacco use type Cigar 01/11/24 11:03 e-Cigarette/Vaping Use Currently Using 01/11/24 11:03 PHQ-9: PHQ-9 Score PHQ-9: Total score 13 01/11/24 11:25 Depression Screening Interpretation: Positive Depression Screening Follow-up: Existing condition and In treatment Thrive Assessment: Date of Thrive Assessment Date Thrive assessed 01/10/24 01/11/24 11:03 Currently or been in a relationship where the following occur: No concerns reported Const General: cooperative Nutritional Appearance: obese morbidly obese Orientation/consciousness: patient oriented x3 HENMT Other: cerumen noted to left ear, after ear lavage Head: Yes normal to inspection, Yes normocephalic and Yes atraumatic Ears: TM normal on the right Eyes General: appearance normal, both eyes and all related structures Alignment and Position: alignment normal and position normal Neck Neck: Yes normal visual inspection and Yes no lymphadenopathy Thyroid: Thyroid normal Resp Effort & Inspection: normal respiratory effort Auscultation: clear to auscultation bilaterally Cardio Rate: regular rate Rhythm: regular rhythm Heart sounds: S1 normal heart sound present, S2 normal heart sound present and no murmurs GI Palpation (GI): Soft to palpation and nontender Auscultation: normal bowel sounds Male General Exam: Yes normal external exam Penis: normal penis Scrotum: scrotum normal, testes descended bilaterally and no inguinal hernias Testes: no testicular mass Skin Rashes: no rashes Neuro General: patient oriented x3, moves all extremities, no focal motor deficits and deep tendon reflexes 2+ bilaterally Romberg Test: Negative Psych Appearance: grossly normal Mental Status: mental status grossly normal Speech and movement: Normal speech and movement present Affect: normal affect Attitude: cooperative Thought process: Normal thought process present Thought content: Normal thought content present Insight: Good insight present (Psych) Judgement: Good judgement present (Psych) Office Procedures Cerumen Removal From which ear canal was the cerumen removed: left Removal: irrigation and cerumen loop/spoon Notes: patient tolerated procedure well, no complications and ear canal clear [id number] Irrigation/Lavage Assessment and Plan Assessment & Plan (1) Morbid obesity: Code(s): E66.01 - Morbid (severe) obesity due to excess calories (2) Cerumen debris on tympanic membrane: Code(s): H61.20 - Impacted cerumen, unspecified ear Plan: ear canal is clean, pt tolerated the procedure well (3) Encounter for routine adult physical exam with abnormal findings: Code(s): Z00.01 - Encounter for general adult medical examination with abnormal findings Plan: labs already ordered Plan The patient agreed to the use of a medical care manager for this encounter. Scribed for ALPHONSE Goode-BC by Paty Hartley medical care manager, on 01/11/2024 at 11:25 EST. Orders: Referrals Nutrition/Dietitian Referral E66.01 - Morbid (severe) obesity due to excess calories Medications: Changed From gabapentin 100 mg PO BID 30 days 60 caps 4RF To gabapentin 200 mg (2 x 100 mg) PO DAILY 90 days 180 caps 0RF From cane As directed 1 ea 0RF G54.9 - Nerve root and plexus disorder, unspecified, M51.26 - Other intervertebral disc displacement, lumbar region, M5 4.9 - Dorsalgia, unspecified, M79.609 - Pain in unspecified limb To cane daily use 1 ea 0RF G54.9 - Nerve root and plexus disorder, unspecified, M51.26 - Other intervertebral disc displacement, lumbar region, M54.9 - Dorsalgia, unspecified, M79.609 - Pain in unspecified limb Coding Level of Care Code Est Pt Prev Care 18-39y(75493) Diagnoses Morbid obesity E66.01 Cerumen debris on tympanic membrane H61.20 Encounter for routine adult physical exam with abnormal findings Z00.01 CPT Codes Office Procedure - CPT: 14910-Zcp Irrigation/Lavage ([id number]) Additional Codes AYDEE-7 Assessment Billing - AYDEE-7 Assessment Tool: AYDEE-7 Assessment 11972 ([id number])
[2024-01-11 11:04] VITALS: BP 130/90; PULSE 72; O2SAT 96; BMI 56.0
== END 2024-01-11 12:06 | disposition home or self-care (01) ==
PROVIDERS: PCP Nurse Practitioner Family; Visit Provider Nurse Practitioner Family
DX: Z00.00 Encounter for general adult medical examination without abnormal findings (principal); E66.01 Morbid (severe) obesity due to excess calories; Z68.43 Body mass index [BMI] 50.0-59.9, adult; H61.22 Impacted cerumen, left ear
CPT/HCPCS: 69209; 99395

== ENCOUNTER 2024-03-21 09:41 | Outpatient (REF) | payer OTHER, SELFPAY ==
[2024-03-21 13:37] LABS: MANUAL DIFF FLAG NO
[2024-03-21 13:42] LABS: Basophils Percent Auto 0.4 % (0-2); Eosinophils Absolute Auto 0.2 X10*3/uL (0.0-0.4); Eosinophils Percent Auto 2.2 % (0-4); Hematocrit 45.3 % (42.0-52.0); Imm Gran Abs Auto 0.02 X10*3/uL (0.00-0.03); Imm Gran Pct Auto 0.2 % (0.0-0.4); Lymphocytes Percent Auto 24.9 % (20-40); Mean Corpuscular HGB Conc 33.1 g/dl (31.0-36.0); Mean Corpuscular Hemoglobin 29.5 pg (27.0-33.0); Mean Platelet Volume 10.7 fL (9.4-12.4); Monocytes Absolute Auto 0.8 X10*3/uL (0.1-1.2); Monocytes Percent Auto 10.2 % (2-11); Neutrophils Percent Auto 62.1 % (45-73); Platelet Count 241 X10*3/uL (160-400); Red Blood Count 5.09 X10*6/uL (4.60-5.80); Red Cell Distribution Width 13.5 % (11.0-16.0); White Blood Count 8.1 X10*3/uL (4.8-10.8)
[2024-03-21 14:12] LABS: Alanine Aminotransferase 25 U/L (0-40); Albumin Level 3.9 g/dL (3.5-5.0); Alkaline Phosphatase 93 U/L (39-117); Anion Gap 13 (12-20); Aspartate Amino Transferase 21 U/L (5-37); Bilirubin Total 0.3 mg/dL (0.0-1.0); Blood Urea Nitrogen 11 mg/dL (9-16); Calcium 9.4 mg/dL (8.4-10.2); Carbon Dioxide 27 mmol/L (22-29); Chloride 106 mmol/L (96-108); Cholesterol 168 mg/dL (<200); Estimated Glomerular Filt Rate > 60; Glucose Fasting 134 mg/dL (60-99); HDL Cholesterol 34 mg/dL (>40); LDL Cholesterol Calculated 114 mg/dL (<100); Potassium 4.6 mmol/L (3.3-5.1); Sodium 141 mmol/L (135-145); Total Protein 7.3 g/dL (6.5-8.0); Triglycerides 102 mg/dL (<150)
[2024-03-21 14:30] LABS: Folate 8.2 ng/mL (> or = 4.0); Vitamin B12 461 pg/mL (200-900)
[2024-03-21 14:33] LABS: TSH reflex Free T4 0.98 uIU/mL (0.32-4.0)
== END 2024-03-21 09:42 | disposition home or self-care (01) ==
LOC: HO.HMGCLDS 09:41
PROVIDERS: PCP Nurse Practitioner Family; Visit Provider Nurse Practitioner Family
DX: R41.0 Disorientation, unspecified (principal)
CPT/HCPCS: 36415; 80053; 80061; 82607; 82746; 84443; 85025

== ENCOUNTER → 2024-05-08 08:15 | Outpatient (BNVA) | payer OTHER, SELFPAY | PROVIDERS: PCP Nurse Practitioner Family ==

== ENCOUNTER → 2024-06-01 14:37 | Outpatient (BNVA) | payer OTHER, SELFPAY | PROVIDERS: PCP Nurse Practitioner Family ==

== ENCOUNTER 2024-06-13 08:51 | Outpatient (AMB) | payer MEDICARE, MEDICAID, SELFPAY ==
--- NOTE | 2024-06-13 08:53 | A.OFFPC_ITS ---
Vital Signs 06/13/24 09:04 Height 6 ft Weight 405 lb BMI 54.9 BP 128/68 Blood Pressure Location Lt radial Position Sitting Pulse 86 Pulse Source Pulse Oximeter Pulse Oximetry (%) 95 Oxygen Delivery Method Room Air Intake Visit Reasons: Followup DM Allergies SEAFOOD Allergy (Severe, Uncoded 06/13/24 09:56) HIVES shellfish Allergy (Unknown, Uncoded 06/13/24 09:56) anaphylaxis Medication List - Last Reconciled 06/13/24 by RIGOBERTO Mina acetaminophen 500 mg PO Q6H PRN 30 days albuterol sulfate 90 mcg/actuation (ProAir HFA) 2 puffs inhalation Q6H PRN 30 days albuterol sulfate 90 mcg/actuation 2 puffs inhalation Q6H PRN aripiprazole 10 mg PO DAILY blood sugar diagnostic (FreeStyle Lite Strips) Test blood sugar twice a day, fasting and a random blood-glucose meter (FreeStyle Lite Meter kit) As directed cane daily use cholecalciferol (vitamin D3) 50 mcg PO DAILY clonidine HCl 0.1 mg PO BID cyclobenzaprine 10 mg PO BID PRN 14 days duloxetine 60 mg PO DAILY gabapentin 200 mg (2 x 100 mg) PO DAILY 90 days lamotrigine 100 mg PO DAILY lancets (FreeStyle Lancets) Test blood sugar twice a day, fasting and a random Tobacco use date assessed: 06/13/24 Dental Screening Dental Screen Date: 06/13/24 Did you have a dental visit in the last 12 months?: No Did you have a dental problem in the last 6 months where you did not have access to dental care?: No Was dental information given to patient?: Patient declined HPI Followup DM HPI Details Chief Complaint Follow-up on recent diabetes diagnosis and management of seizures. History of Present Illness The patient is a 38-year-old male presenting with newly diagnosed diabetes mellitus. His most recent fasting blood sugar level from February was 134 mg/dL, and a subsequent test today showed a blood sugar level of 140 mg/dL. He reports a single instance where his blood sugar exceeded 200 mg/dL, attributing it to consuming a high amount of sugar in one sitting. He has since eliminated sugar from his diet and reports adhering to a diet low in snacks, focusing more on meat consumption. The patient acknowledges ongoing management efforts, inc luding support from his father in meal preparation. The patient also presents with a history of seizure disorder. He describes frequent seizures, which occur without warning and manifest as episodes of unconsciousness lasting about a minute. He has visited the hospital due to these seizures, where it was suggested that his condition might be linked to insufficient use of his sleep apnea machine. The patient was advised to be compliant with sleep therapy due to concerns about heart failure??? as his heart was noted to be weak during a recent hospital admission? will track down notes from hospital visit Additionally, he experiences peripheral neuropathy, particularly in his feet, which he attributes to a previous back injury. On examination, a callus on his right first toe and callus formation on the left heel were observed. Social History - The patient lives independently and re quires assistance with certain daily activities. He has hired a personal consultant, Vik, to help him overnight due to seizure concerns and inability to sleep through the night. - His recent dietary changes include red ucing sugar and snack intake; his father assists in meal preparation. - The patient reports smoking cigarettes , particularly when he wakes up during the night. Health Maintenance - Received a flu vaccine recently. - Due for a pneumonia vaccine. - Discussed risk reduction for cardiovas cular disease, considering his diabetic status and cholesterol levels. Review of Systems - Neurological: Reports seizures. - Cardiovascular: Denies recent chest pa in and shortness of breath. - Respiratory: Requires an inhaler. - Ophthalmologic: Reports recent eye exa mination; has to inform them about diabetes for pupil dilation. Physical Exam General: Cooperative, healthy appearing, comfortable, no acute distress and well developed, morbidly obese, using cane Orientation: Patient oriented x3, but experiences confusion post-seizure Limitations: No limitations Head: Normal to inspection Ears: Hearing grossly normal bilaterally Nose: Normal external nose present Face and sinus: Normal facial exam Eyes: Appearance normal, both eyes and all related structures Neck: Normal visual inspection and Yes full ROM Respiratory: Normal respiratory effort and able to speak in complete sentences. Clear to auscultation bilaterally Cardiovascular: Regular rate and rhythm. Normal S1 and S2, but patient reports heart weakness GI: Normal to inspection. Soft to palpation and nontender Skin: No rashes or lesions noted Neuro: Patient oriented x3, Extremities: Callus formation noted on right foot first toe medial aspect and left medial heel, also left first toe medial aspect. + sensation with use of monofilament, elongated nails Results - Labs: Hemoglobin A1c of 6.4, indicatin g diabetes management. - Recent blood sugar levels recorded as 134 mg/dL and 140 mg/dL. Plan - Continue monitoring blood sugar levels and reinforce dietary modifications for diabetes management. - Initiate a medication for cholesterol management to decrease cardiovascular disease risk, given diabetic status. - Emphasize compliance with sleep apnea therapy to aid in seizure disorder management and mitigate heart failure risk. - Administer pneumonia vaccine today. - Follow up in 3 to 4 months to reassess diabetes management and monitor seizure activity. Patient was informed and verbally consented to the use of an ambient scribe for clinic note documentation during this visit. Discussion Notes I discussed the management plan for the newly diagnosed diabetes with the patient, highlighting the importance of dietary changes, particularly the reduction of sugar consumption/bad carbs. I explained that his current HbA1c indicates well-controlled diabetes, which suggests he is on the right track with his lifestyle modifications. I also emphasized the criticality of managing his cholesterol levels to mitigate the augmented risk of cardiovascular issues associated with diabetes. Regarding his seizure disorder, I recommended adherence to his prescribed sleep apnea therapy as a potential mitigator for seizure episodes and highlighted its relevance. We discussed vaccination status, confirming he received the flu shot but is due for a pneumonia vaccine, which will be administered today. Patient Instructions - Continue monitoring blood sugar levels and adhere to dietary recommendations to manage diabetes. - Start cholesterol medication as prescr ibed, and report any side effects. - Maintain regular use of sleep apnea ma chine to assist with seizure control and heart condition. - Receive pneumonia vaccine today. - Attend follow-up appointment in 3-4 mo [facility] for reassessment. - Contact healthcare provider if seizure s increase in frequency or duration. -adding statin and sharron to regime [facility] Medical History (Updated 06/13/24 @ 09:22 by CRISTI Mina) Suicidal ideation Schizophrenia Nerve root compression Sleep apnea Lumbar disc herniation Stuttering Anxiety Asthma ADHD (attention deficit hyperactivity disorder) Bipolar disorder Family History Father No problems noted. Mother No problems noted. Sister No problems noted. Sister No problems noted. Daughter No problems noted. Social History Housing: Assisted Living Facility Alcohol intake: former Patient Tobacco Use Status: Current everyday Tobacco user Tobacco use type: Cigar Cigarette Packs Per Day: 0.5 Cigarettes Per Day: 10 e-Cigarette/Vaping Use: Former Use Second Hand Smoke Exposure: Yes Substance Use Type: Marijuana service: No Current occupational status: unemployed Cognitive needs: No Hearing needs: No Vision needs: No Questionnaire Thrive Questionnaire Date Thrive assessed: 01/10/24 I am a: Parent/Caregiver What is your living situation today?: I choose not to answer this question Within the past 12 months, did the food you bought not last and you didn't have the money to get more?: Often true Within the past 12 months, did you worry whether your food would run out before you got money to buy more?: Often true Do you have trouble paying for medicines?: I choose not to answer this question Do you have trouble getting transportation to medical appointments?: Yes Do you have trouble paying your heating and electricity bill?: I choose not to answer this question Do you have trouble taking care of your child, family member or friend?: No Do you have trouble with day-to-day activities such as bathing, preparing meals, shopping, managing finances, etc.?: I choose not to answer this question Are you currently unemployed and looking for a job?: I choose not to answer this question Are you interested in more education?: I choose not to answer this question Currently or been in a relationship where the following occur: No concerns reported THRIVE Score: 3 AYDEE-7 AMB Questionnaire AYDEE-7 Date AYDEE - 7 assessed: 01/11/24 Source: Developed by Drs. Romeo Meyer, Cindy Edwards, Jose Mittal and colleagues, with an educational chris from [employer]. Physical exam (Primary Care) Vital Signs: Last Vital Signs Pulse 86 06/13/24 09:04 BP 128/68 06/13/24 09:04 Pulse Ox 95 06/13/24 09:04 Oxygen Delivery Method Room Air 06/13/24 09:04 BMI result Body Mass Index 54.9 Tobacco/Smoking Status: Tobacco use Status Tobacco use date assessed 06/13/24 06/13/24 09:08 Patient Tobacco Use Status Current everyday Tobacco 06/13/24 08:54 Tobacco use type Cigar 06/13/24 08:54 e-Cigarette/Vaping Use Former Use 06/13/24 09:08 Thrive Assessment: Date of Thrive Assessment Date Thrive assessed 01/10/24 06/13/24 08:54 Currently or been in a relationship where the following occur: No concerns reported Results AMB Hemoglobin A1c AMB Hemoglobin A1c 6.4 % Last Edit by Chula Castillo CMA on 06/13/24 09:10 Immunizations pneumoc 20-denisse conj-dip cr(PF) 0.5 mL IM syringe Performing Provider: CIRSTI Mina [place] [facility] Administered by: Kelby Ramos CMA on 06/13/24 09:28 Dose Route Admin Location Dispensed Lot Number Expiration Date ND Pill Packer 0.5 mL IM Right Deltoid 0.5 mL [id number] 11/13/25 7339-4712-17 WYETH/PFIZER VIS Given Date VIS Provided VIS Publication Date 06/13/24 Single Vaccine 21 Eligibility Eligibility Date Funding Source Not [facility] Eligible 06/13/24 Private Results Reviewed Results Reviewed: Laboratory Last Values Hgb A1c (Clinic) 6.4 % (4.0-6.0) H 06/13/24 09:08 Coding Level of Care Code Est Pt Level 3 (51941) Diagnoses Seizure-like activity R56.9 Assessment & Plan Assessment & Plan (1) Seizure-like activity: Code(s): R56.9 - Unspecified convulsions Category: Medical Plan . Orders: Orders AMB Hemoglobin A1c Today E11.9 - Type 2 diabetes mellitus without complications Pneumococcal 20 Immunization Today Z23 - Encounter for immunization Referrals Neurology Referral R56.9 - Unspecified convulsions Medications: New atorvastatin 10 mg PO BEDTIME 90 days 90 tabs 0RF lisinopril 2.5 mg PO DAILY 90 days 90 tabs 0RF
[2024-06-13 09:04] VITALS: BP 128/68; PULSE 86; O2SAT 95; BMI 54.9
== END 2024-06-13 10:12 | disposition home or self-care (01) ==
PROVIDERS: PCP Nurse Practitioner Family; Visit Provider Nurse Practitioner Family
DX: E11.9 Type 2 diabetes mellitus without complications (principal); Z23 Encounter for immunization; R56.9 Unspecified convulsions

== ENCOUNTER → 2024-06-13 08:51 | Outpatient (BNVA) | payer MEDICARE, MEDICAID, SELFPAY | PROVIDERS: PCP Nurse Practitioner Family; Visit Provider Nurse Practitioner Family | DX: Z23 Encounter for immunization (principal); R56.9 Unspecified convulsions; E11.9 Type 2 diabetes mellitus without complications | CPT/HCPCS: 83036; 90471; 90677; 99212 ==

== ENCOUNTER 2025-02-21 11:01 | Outpatient (AMB) | payer MEDICARE, MEDICAID, SELFPAY ==
--- NOTE | 2025-02-21 11:14 | A.OFFPC_ITS ---
Vital Signs 02/21/25 11:15 Height 6 ft Weight 414 lb BMI 56.1 BP 130/70 Blood Pressure Location Lt brachial Position Sitting Pulse 86 Pulse Source Pulse Oximeter Temp 98.0 F Temp Source Oral Pulse Oximetry (%) 97 Intake Visit Reasons: PE/ok per JG and DC Intake Note: pt is here physical exam Allergies SEAFOOD Allergy (Severe, Uncoded 02/21/25 11:15) HIVES shellfish Allergy (Unknown, Uncoded 02/21/25 11:15) anaphylaxis Medication List - Last Reconciled 02/21/25 by Ivonne Anaya PA-C acetaminophen mg PO albuterol sulfate 90 mcg/actuation (ProAir HFA) 2 puffs inhalation Q6H PRN 30 days aripiprazole mg PO DAILY atorvastatin 10 mg PO BEDTIME blood sugar diagnostic (FreeStyle Lite Strips) Test blood sugar twice a day, fasting and a random blood-glucose meter (FreeStyle Lite Meter kit) As directed cane daily use cholecalciferol (vitamin D3) 50 mcg PO DAILY clonidine HCl 0.1 mg PO BID cyclobenzaprine 10 mg PO BID PRN 14 days duloxetine mg PO gabapentin 200 mg (2 x 100 mg) PO DAILY 90 days lamotrigine 100 mg PO DAILY lamotrigine mg PO lancets (FreeStyle Lancets) Test blood sugar twice a day, fasting and a random lisinopril 2.5 mg PO DAILY Tobacco use date assessed: 02/21/25 Dental Screening Dental Screen Date: 02/21/25 Did you have a dental visit in the last 12 months?: No Did you have a dental problem in the last 6 months where you did not have access to dental care?: No Was dental information given to patient?: Patient declined HPI HPI Comments History of Present Illness Details History of Present Illness - The patient is a 39-year-old male pres enting for a physical examination required for his day program purposes. - Schizophrenia, bipolar disorder, and A DD: The patient has a history of these conditions and had stopped taking medications for a few months, feeling initially well but later experienced worsening symptoms, prompting resumption of medication. Is currently taking them and feels much better, denies SI or HI. - Diabetes mellitus: The patient's A1c i s elevated at 8.6 today, indicating poorly controlled diabetes. The patient does not currently take diabetic medications and has broken and lost the glucose meter previously prescribed. - Muscle spasms: The patient experiences muscle spasms, particularly in the back, and uses cyclobenzaprine for management. Asking for a refill - Possible asthma: The patient reports c oughing and is prescribed an inhaler for symptomatic relief. - the patient tells me that he loses con sciousness for a few sec and then wakes up confused as to where he is and it takes him a couple of minutes to react ivate. He says this used to happen randomly but it has been happening more frequently and now is happening a few times a day. These episodes seem to be triggered by coughing yawning and stretching. He denies any urinary incontinence during these episodes and denies a seizure history or ever taking any antiseizure medications. Health Maintenance - Diabetes management: Discussion on sta rting metformin and dietary modifications to control blood glucose levels. - Dietary advice: Recommendations to red uce carbohydrate intake and consider healthier, lower carb food options. - Diabetes education: Plan to set up an appointment with a extension educator for further guidance. Social History - Housing: The patient resides in a grou p home with staff support for medication management. - Substance use: The patient reports usi ng marijuana, typically consuming it rather than smoking. Review of Systems - General: Denies unintentional weight l oss or gain, or night sweats - Psychiatric: Denies thoughts of self-h arm or harm to others, denies feeling of [place]. - Neurological: Denies headaches, dizzin ess, or seizures. - Respiratory: Denies shortness of breat h, cough, or wheezing. - Gastrointestinal: Denies abdominal axel n, nausea, vomiting, diarrhea, or weight loss. - Musculoskeletal: Denies joint tingling or fevers. [facility] Medical History Suicidal ideation Schizophrenia Nerve root compression Sleep apnea Lumbar disc herniation Stuttering Anxiety Asthma ADHD (attention deficit hyperactivity disorder) Bipolar disorder Surgical History No pertinent past surgical history Family History Father No problems noted. Mother No problems noted. Sister No problems noted. Sister No problems noted. Daughter No problems noted. Social History Housing: Assisted Living Facility Alcohol intake: former Patient Tobacco Use Status: Current everyday Tobacco user Tobacco use type: Cigar Cigarette Packs Per Day: 0.5 Cigarettes Per Day: 10 e-Cigarette/Vaping Use: Former Use Second Hand Smoke Exposure: Yes Substance Use Type: Marijuana service: No Current occupational status: unemployed Cognitive needs: No Hearing needs: No Vision needs: No Questionnaire PHQ-9 Over the last 2 weeks, how often have you been bothered by any of the following problems? 1. Little interest or pleasure in doing things: more than half the days 2. Feeling down, depressed, or hopeless: not at all 3. Trouble falling or staying asleep, or sleeping too much: several days 4. Feeling tired or having little energy: several days 5. Poor appetite or overeating: several days 6. Feeling bad about yourself - or that you are a failure or have let yourself or your family down: not at all 7. Trouble concentrating on things, such as reading the newspaper or watching television: several days 8. Moving or speaking so slowly that other people could have noticed. Or the opposite - being so fidgety or restless that you have been moving around a lot more than usual: more than half the days 9. Thoughts that you would be better off or of hurting yourself in some way: not at all Total score: 8 Depression Screening Interpretation: Negative Depression Screening Done: Yes 26923 - PHQ-9 Billing: Yes Source: Developed by Drs. Romeo Meyer, Cindy Edwards, Jose Mittal and colleagues, with an educational chris from [employer]. Thrive Questionnaire Date Thrive assessed: 02/21/25 I am a: Patient What is your living situation today?: I have a place to live, but I am worried about losing it in the future Within the past 12 months, did the food you bought not last and you didn't have the money to get more?: Often true Within the past 12 months, did you worry whether your food would run out before you got money to buy more?: Often true Do you have trouble paying for medicines?: No Do you have trouble getting transportation to medical appointments?: Yes Do you have trouble paying your heating and electricity bill?: No Do you have trouble taking care of your child, family member or friend?: No Do you have trouble with day-to-day activities such as bathing, preparing meals, shopping, managing finances, etc.?: Yes Are you currently unemployed and looking for a job?: Yes Are you interested in more education?: No Currently or been in a relationship where the following occur: No concerns reported THRIVE Score: 4 AUDIT C Alcohol Use Questionnaire (AUDIT-C) 1. How often do you have a drink containing alcohol?: Never 3. How often do you have six or more drinks on one occasion?: Never Total Score: 0 Score Reviewed/Action Taken: Yes AYDEE-7 AMB Questionnaire AYDEE-7 Date AYDEE - 7 assessed: 02/21/25 Feeling nervous, anxious, or on edge: 0 = Not at all Not being able to stop or control worryin = Not at all Worrying too much about different things: 0 = Not at all Trouble relaxin = More than half the days Being so restless that it is hard to sit still: 2 = More than half the days Becoming easily annoyed or irritable: 0 = Not at all Feeling afraid as if something awful might happen: 0 = Not at all Total AYDEE-7 score (0-4 normal; 5-9 mild; 10-14 moderate; 15-21 severe): 4 Source: Developed by Drs. Romeo Meyer, Cindy Edwards, Jose Mittal and colleagues, with an educational chris from [employer]. AYDEE-7 Assessment Billing AYDEE-7 Assessment Tool: AYDEE-7 Assessment 45178 (denies any si or hi) Physical exam (Primary Care) Vital Signs: Last Vital Signs Temp 98.0 F 02/21/25 11:15 Pulse 86 02/21/25 11:15 BP 130/70 02/21/25 11:15 Pulse Ox 97 02/21/25 11:15 BMI result Body Mass Index 56.1 Tobacco/Smoking Status: Tobacco use Status Tobacco use date assessed 02/21/25 02/21/25 11:22 Patient Tobacco Use Status Current everyday Tobacco 02/21/25 11:22 Tobacco use type Cigar 02/21/25 11:22 e-Cigarette/Vaping Use Former Use 02/21/25 11:22 Relapse Prevention: discussed dietary, exercise and/or lifestyle changes PHQ-9: PHQ-9 Score PHQ-9: Total score 8 02/21/25 11:22 Depression Screening Interpretation: Negative Thrive Assessment: Date of Thrive Assessment Date Thrive assessed 02/21/25 02/21/25 11:22 Currently or been in a relationship where the following occur: No concerns reported Const General: cooperative Nutritional Appearance: obese morbidly obese Orientation/consciousness: patient oriented x3 HENMT Head: Yes normal to inspection, Yes normocephalic and Yes atraumatic Ears: hearing grossly normal bilaterally, external ears normal and TM's normal bilaterally General nose exam: Normal external nose present Face and sinus: Yes normal facial exam Mouth: Normal oral and palatal mucosa present and moist mucous membranes Throat: Yes posterior oropharynx normal Eyes General: appearance normal, both eyes and all related structures Alignment and Position: alignment normal and position normal Neck Neck: Yes normal visual inspection and Yes no lymphadenopathy Resp Effort & Inspection: normal respiratory effort Auscultation: clear to auscultation bilaterally Cardio Rate: regular rate Rhythm: regular rhythm Heart sounds: S1 normal heart sound present, S2 normal heart sound present and no murmurs GI Palpation (GI): Soft to palpation and nontender Auscultation: normal bowel sounds General: Yes deferred Skin Rashes: no rashes Neuro General: patient oriented x3, moves all extremities and no focal motor deficits Cognition (Neuro): normal cognition Gait exam (Neuro): Normal gait present Motor exam (neuro): 5/5 motor strength present throughout Sensory Exam: double simultaneous stimulation for sensation normal Extrem General: Yes normal to inspection Right upper extremity: normal to inspection Left upper extremity: normal to inspection Right lower extremity: normal to inspection Left lower extremity: normal to inspection Psych Appearance: grossly normal Mental Status: mental status grossly normal Speech and movement: Normal speech and movement present Affect: normal affect Attitude: cooperative Thought process: Normal thought process present Thought content: Normal thought content present Insight: Good insight present (Psych) Judgement: Good judgement present (Psych) Results AMB Hemoglobin A1c AMB Hemoglobin A1c 8.6 % Last Edit by Kelby Ramos CMA on 02/21/25 11: 34 Coding Level of Care Code Est Pt Prev Care 40-64y(34855) Diagnoses Encounter for routine adult physical exam with abnormal findings Z00.01 Additional Codes AYDEE-7 Assessment Billing - AYDEE-7 Assessment Tool: AYDEE-7 Assessment 41448 ([id number]) PHQ-9 - 77882 - PHQ-9 Billing: Yes ([id number]) Assessment & Plan Assessment & Plan (1) Encounter for routine adult physical exam with abnormal findings: Code(s): Z00.01 - Encounter for general adult medical examination with abnormal findings Category: Medical Plan: Results - Labs: Hemoglobin A1c elevated at 8.6, indicating poor glycemic control. 1. Diabetes Mellitus - Initiate metformin therapy to manage elevated blood glucose levels. - Arrange for diabetes education to assist with lifestyle modifications and glucose monitoring. - Recommend dietary changes to reduce carbohydrate intake and improve glycemic control. - Follow up with PCP in 3 months. 2. Muscle Spasms - Continue cyclobenzaprine for management of muscle spasms. 3. Possible Asthma - Prescribe inhaler for symptomatic relief of coughing episodes. 4. vasovagal syndrome - Arranged for follow up with PCP via telehealth to review and determine next steps. Patient Instructions - Start taking metformin as prescribed to help control blood sugar levels. - Follow dietary recommendations to reduce carbohydrate intake and improve blood sugar control. - Attend a diabetes education session to learn about managing diabetes and monitoring blood sugar. - Use the prescribed inhaler as needed for coughing episodes. - Continue taking cyclobenzaprine for muscle spasms as directed. - Schedule a follow-up appointment with your primary care provider in three months to monitor your progress. - Please get your labs done while fasting. Orders: Orders Comprehensive [place]. Panel Fast Today Z00.00 - Encounter for general adult medical examination without abnormal findings Vitamin D 25-OH Total Today Z00.00 - Encounter for general adult medical ex amination without abnormal findings AMB Hemoglobin A1c Today Z13.9 - Encounter for screening, unspecified Complete Blood Count Auto Diff Today Z00.00 - Encounter for general adult medical examination without abnormal findings Lipid Panel Today Z00.00 - Encounter for general adult medical examination without abnormal findings TSH reflex Free T4 Today Z00.00 - Encounter for general adult medical examination without abnormal findings Medications: New metformin 500 mg PO BID 180 tabs 0RF Refilled albuterol sulfate 90 mcg/actuation (ProAir HFA) 2 puffs inhalation Q6H PRN 8.5 grams 0RF bronchospasm 30 days cyclobenzaprine 10 mg PO BID PRN 28 tabs 0RF muscle spasm 14 days blood sugar diagnostic (FreeStyle Lite Strips) Test blood sugar twice a day, fasting and a random 200 ea 1RF E11.9 - Type 2 diabetes mellitus without complications blood-glucose meter (FreeStyle Lite Meter kit) As directed 1 ea 0RF E11.9 - Type 2 diabetes mellitus without complications lancets (FreeStyle Lancets) Test blood sugar twice a day, fasting and a random 200 ea 1RF E11.9 - Type 2 diabetes mellitus without complications
[2025-02-21 11:15] VITALS: BP 130/70; PULSE 86; TEMP 36.7; O2SAT 97; BMI 56.1
== END 2025-02-21 12:43 | disposition home or self-care (01) ==
LOC: HO.HMCC 11:02
PROVIDERS: PCP Nurse Practitioner Family; Visit Provider Physician Assistant
DX: Z00.01 Encounter for general adult medical examination with abnormal findings (principal); E11.9 Type 2 diabetes mellitus without complications

== ENCOUNTER → 2025-02-21 11:01 | Outpatient (BNVA) | payer MEDICARE, MEDICAID, SELFPAY | PROVIDERS: PCP Nurse Practitioner Family; Visit Provider Physician Assistant | DX: Z00.01 Encounter for general adult medical examination with abnormal findings (principal); E11.9 Type 2 diabetes mellitus without complications; F41.9 Anxiety disorder, unspecified; F90.9 Attention-deficit hyperactivity disorder, unspecified type; F17.200 Nicotine dependence, unspecified, uncomplicated; Z71.6 Tobacco abuse counseling | CPT/HCPCS: 83036; 96127; 99396 ==

== ENCOUNTER 2025-05-21 10:34 | Outpatient (REF) | payer MEDICARE, MEDICAID, SELFPAY ==
[2025-05-21 14:11] LABS: MANUAL DIFF FLAG NO
[2025-05-21 14:18] LABS: Hematocrit 46.1 % (42.0-52.0); Hemoglobin 14.9 g/dl (14.0-18.0); Imm Gran Abs Auto 0.03 X10*3/uL (0.00-0.03); Imm Gran Pct Auto 0.3 % (0.0-0.4); Lymphocytes Absolute Auto 2.6 X10*3/uL (1.2-4.9); Mean Corpuscular HGB Conc 32.3 g/dl (31.0-36.0); Mean Corpuscular Hemoglobin 29.5 pg (27.0-33.0); Mean Corpuscular Volume 91.3 fL (80.0-98.0); NRBC Abs Auto 0.000 X10*3/uL (0.0-0.012); NRBC Pct Auto 0.0 /100WBC (0.0-0.2); Platelet Count 253 X10*3/uL (160-400); Red Blood Count 5.05 X10*6/uL (4.60-5.80); White Blood Count 10.0 X10*3/uL (4.8-10.8)
[2025-05-21 14:51] LABS: Alanine Aminotransferase 19 U/L (0-40); Albumin Level 4.0 g/dL (3.5-5.0); Alkaline Phosphatase 116 U/L (39-117); Anion Gap 12 (12-20); Aspartate Amino Transferase 25 U/L (5-37); Blood Urea Nitrogen 12 mg/dL (9-16); Calcium 9.2 mg/dL (8.4-10.2); Carbon Dioxide 25 mmol/L (22-29); Chloride 107 mmol/L (96-108); Cholesterol 145 mg/dL (<200); Estimated Glomerular Filt Rate > 60; HDL Cholesterol 37 mg/dL (>40); Potassium 4.5 mmol/L (3.3-5.1); Sodium 139 mmol/L (135-145); Total Protein 7.3 g/dL (6.5-8.0); Triglycerides 127 mg/dL (<150)
== END 2025-05-21 10:35 | disposition home or self-care (01) ==
LOC: HO.HMGCLDS 10:34
PROVIDERS: PCP Nurse Practitioner Family; Visit Provider Physician Assistant
DX: Z00.00 Encounter for general adult medical examination without abnormal findings (principal); Z13.0 Encounter for screening for diseases of the blood and blood-forming organs and certain disorders involving the immune mechanism; Z13.6 Encounter for screening for cardiovascular disorders; Z13.29 Encounter for screening for other suspected endocrine disorder; Z13.21 Encounter for screening for nutritional disorder
CPT/HCPCS: 36415; 80053; 80061; 82306; 84443; 85025

== ENCOUNTER 2025-05-27 14:13 | Outpatient (AMB) | payer MEDICARE, MEDICAID, SELFPAY ==
--- NOTE | 2025-05-27 14:22 | MHC.PC.OV ---
Vital Signs 05/27/25 14:23 Height 6 ft Weight 414 lb BMI 56.1 BP 132/70 Blood Pressure Location Lt brachial Position Sitting Pulse 80 Pulse Source Pulse Oximeter Pulse Oximetry (%) 94 Intake Visit Reasons: 3m follow up new DM Allergies SEAFOOD Allergy (Severe, Uncoded 05/27/25 14:23) HIVES shellfish Allergy (Unknown, Uncoded 05/27/25 14:23) anaphylaxis Medication List - Last Reconciled 05/27/25 by CRISTI Mina acetaminophen mg PO albuterol sulfate 90 mcg/actuation (ProAir HFA) 2 puffs inhalation Q6H PRN 30 days aripiprazole mg PO DAILY atorvastatin 10 mg PO BEDTIME blood sugar diagnostic (FreeStyle Lite Strips) Test blood sugar once a day blood-glucose meter (FreeStyle Lite Meter kit) As directed cane daily use cholecalciferol (vitamin D3) 50 mcg PO DAILY clonidine HCl 0.1 mg PO BID duloxetine mg PO gabapentin 200 mg (2 x 100 mg) PO DAILY 90 days lamotrigine 100 mg PO DAILY lamotrigine mg PO lancets (FreeStyle Lancets) Test blood sugar once a day lisinopril 2.5 mg PO DAILY metformin ER (Glucophage XR) 500 mg PO BID 30 days tirzepatide (Mounjaro) 2.5 mg (0.5 mL) subcut QWEEK Tobacco use date assessed: 02/21/25 Dental Screening Dental Screen Date: 02/21/25 HPI 3m follow up new DM HPI Details Chief Complaint The patient presents for a follow-up visit for diabetes management. History of Present Illness The patient is a 39 year old individual presenting for a follow-up for diabetes. The patient's HbA1c has recently decreased from 8.6% to 7.7% with dietary changes and the initiation of a walking routine. Current medications include metformin 500 mg twice daily, an KIRSTEN inhibitor, and a statin. The patient has been diagnosed with neuropathy in the lower extremities. The patient denies any personal history of thyroid carcinoma or pancreatitis. The patient reports regular use of marijuana. Social History - Substance Use: The patient smokes marijuana on a regular basis. - Exercise: The patient has started a walking routine. Health Maintenance The patient reports they will schedule their own diabetic eye exam. A follow-up appointment will be scheduled in four months to monitor progress. Review of Systems - Neurological: Reports decreased sensation in the lower extremities. - Endocrine: Denies any history of thyroid carcinoma. - Gastrointestinal: Denies any history of pancreatitis. Physical Exam General: Cooperative, healthy appearing, comfortable, no acute distress and well developed, morbidly obese Orientation: Patient oriented x3 Limitations: No limitations Head: Normal to inspection Ears: Hearing grossly normal bilaterally Nose: Normal external nose present Face and sinus: Normal facial exam Eyes: Appearance normal, both eyes and all related structures Neck: Normal visual inspection and Yes full ROM Respiratory: Normal respiratory effort and able to speak in complete sentences. Lungs are fairly clear Cardiovascular: Regular rate and rhythm. S1 S2 morbidly obese GI: Normal to inspection. Soft to palpation and nontender Skin: No rashes or lesions noted. Callus formation noted on the medial aspect of each big toe Neuro: Patient oriented x3. Neuropathy in the lower extremities, positive sensation except in the left, very decreased sensation to right Extremities: Normal to inspection. Elongated toenails and onychomycosis noted bilat Results - Labs: - HbA1c: 7.7%, decreased from 8.6%. Plan 1. Diabetes Mellitus The patient's A1c improved from 8.6 to 7.7 with diet modifications, a new walking routine, and metformin 500 mg BID. To further improve glycemic control, Mounjaro, a GLP-1 agonist, will be initiated. Contraindications were reviewed, and the patient denies a history of thyroid carcinoma or pancreatitis. Major side effects were discussed. A nurse will administer the medication once weekly. A follow-up is scheduled in four months. 2. Diabetic Neuropathy And Foot Care The patient has neuropathy in the lower extremities with decreased sensation, worse on the left. Exam findings also include callus formation, elongated toenails, and onychomycosis. A referral will be made to a cell operator for further management. Discussion Notes I discussed the improvement in the patient's A1c, which has decreased from 8.6 to 7.7, primarily due to diet and starting a walking routine. I recommended initiating a GLP-1 agonist, Mounjaro, and went over the major side effects. The patient denied any personal history of thyroid carcinoma or pancreatitis. Due to findings of onychomycosis, elongated toenails, and calluses, I informed the patient that I will be placing a referral to podiatry. I advised the patient to make an appointment for an eye exam. We will follow up in four months to ensure everything is progressing in the right direction. Patient Instructions - Continue with your diet changes and walking routine. - Continue taking your current medications as prescribed, including metformin 500 mg twice a day. - You will be started on a new weekly injectable medication called Mounjaro. A nurse will administer this injection for you. - We have discussed the major side effects of this new medication. - We will make a referral for you to see a cell operator (foot doctor). - Please schedule an appointment for an eye exam. - Please follow up in this clinic in four months. [facility], [facility] Medical History Suicidal ideation Schizophrenia Nerve root compression Sleep apnea Lumbar disc herniation Stuttering Anxiety Asthma ADHD (attention deficit hyperactivity disorder) Bipolar disorder Surgical History No pertinent past surgical history Family History Father No problems noted. Mother No problems noted. Sister No problems noted. Sister No problems noted. Daughter No problems noted. Social History Housing: Assisted Living Facility Alcohol intake: former Patient Tobacco Use Status: Current everyday Tobacco user Tobacco use type: Cigar Cigarette Packs Per Day: 0.5 Cigarettes Per Day: 10 e-Cigarette/Vaping Use: Former Use Second Hand Smoke Exposure: Yes Substance Use Type: Marijuana service: No Current occupational status: unemployed Cognitive needs: No Hearing needs: No Vision needs: No Questionnaire Thrive Questionnaire Date Thrive assessed: 09/14/24 I am a: Patient What is your living situation today?: I have a place to live, but I am worried about losing it in the future Within the past 12 months, did the food you bought not last and you didn't have the money to get more?: Often true Within the past 12 months, did you worry whether your food would run out before you got money to buy more?: Often true Do you have trouble paying for medicines?: No Do you have trouble getting transportation to medical appointments?: Yes Do you have trouble paying your heating and electricity bill?: No Do you have trouble taking care of your child, family member or friend?: No Do you have trouble with day-to-day activities such as bathing, preparing meals, shopping, managing finances, etc.?: Yes Are you currently unemployed and looking for a job?: Yes Are you interested in more education?: No Currently or been in a relationship where the following occur: No concerns reported THRIVE Score: 4 AYDEE-7 AMB Questionnaire AYDEE-7 Date AYDEE - 7 assessed: 02/21/25 Source: Developed by Drs. Romeo Meyer, Cindy Edwards, Jose Mittal and colleagues, with an educational chris from [employer]. Physical exam (Primary Care) Vital Signs: Last Vital Signs Pulse 80 05/27/25 14:23 BP 132/70 05/27/25 14:23 Pulse Ox 94 05/27/25 14:23 BMI result Body Mass Index 56.1 Tobacco/Smoking Status: Tobacco use Status Tobacco use date assessed 02/21/25 05/27/25 14:24 Patient Tobacco Use Status Current everyday Tobacco 05/27/25 14:24 Tobacco use type Cigar 05/27/25 14:24 e-Cigarette/Vaping Use Former Use 05/27/25 14:24 Thrive Assessment: Date of Thrive Assessment Date Thrive assessed 09/14/24 05/27/25 14:24 Currently or been in a relationship where the following occur: No concerns reported Results AMB Hemoglobin A1c AMB Hemoglobin A1c 7.7 % Last Edit by Kelby Ramos CMA on 05/27/25 14:54 Results Reviewed Results Reviewed: Laboratory Last Values Hgb A1c (Clinic) 7.7 % (4.0-6.0) H 05/27/25 14:36 Coding Level of Care Code Est Pt Level 3 (94810) Diagnoses Newly diagnosed diabetes E11.9 Onychomycosis B35.1 Overgrown toenails L60.2 Assessment & Plan Assessment & Plan (1) Newly diagnosed diabetes: Code(s): E11.9 - Type 2 diabetes mellitus without complications Category: Medical (2) Onychomycosis: Code(s): B35.1 - Tinea unguium Category: Medical (3) Overgrown toenails: Code(s): L60.2 - Onychogryphosis Category: Medical Plan . Orders: Orders Microalbumin, Random (w Creat) Today E11.9 - Type 2 diabetes mellitus without complications AMB Hemoglobin A1c Today Z13.9 - Encounter for screening, unspecified Referrals Podiatry Referral B35.1 - Tinea unguium, L60.2 - Onychogryphosis Medications: New tirzepatide (Mounjaro) for 4 weeks 2.5 mg (0.5 mL) subcut QWEEK 2 mL 0RF
[2025-05-27 14:23] VITALS: BP 132/70; PULSE 80; O2SAT 94; BMI 56.1
== END 2025-05-27 15:18 | disposition home or self-care (01) ==
LOC: HO.HMCC 14:14
PROVIDERS: PCP Nurse Practitioner Family; Visit Provider Nurse Practitioner Family
DX: E11.9 Type 2 diabetes mellitus without complications (principal); B35.1 Tinea unguium; L60.2 Onychogryphosis; Z13.9 Encounter for screening, unspecified

== ENCOUNTER → 2025-05-27 14:13 | Outpatient (BNVA) | payer MEDICARE, MEDICAID, SELFPAY | PROVIDERS: PCP Nurse Practitioner Family; Visit Provider Nurse Practitioner Family | DX: E11.9 Type 2 diabetes mellitus without complications (principal); B35.1 Tinea unguium; L60.2 Onychogryphosis | CPT/HCPCS: 83036; 99212 ==